=== PATIENT | male | born 1980 | race Native Hawaiian/Other Pacific Islander ===

== ENCOUNTER 2017-10-07 12:46 | Emergency (ER) | payer BC ==
[~2017-10-07] VITALS: Ht 177.8 cm; Wt 97.5 kg
[2017-10-07 13:45] LABS: PLATELET COUNT 325 K/uL (142-355)
[2017-10-07 13:53] LABS: POTASSIUM 3.6 mmol/L (3.6-5.2)
[2017-10-07 14:08] VITALS: BP 135/74; TEMP 98.7
== END 2017-10-07 14:17 | disposition home or self-care (01) ==
LOC: ED 12:46
PROVIDERS: Family Medicine
DX: M54.9 Dorsalgia, unspecified (principal); M51.26 Other intervertebral disc displacement, lumbar region
CPT/HCPCS: 36415; 80048; 85027; 96372; 99283; J1885